=== PATIENT | female | born 1970 | race Caucasian/White ===

== ENCOUNTER 2017-11-02 17:10 | Emergency (ER) | payer BC ==
[2017-11-02] MEDS ORDERED: Ondansetron 8 MG Tab.DIS PO ONE (17:30)
[2017-11-02] MEDS ORDERED: Alum Hydroxide/Mag Hydroxide 15 ML, Lidocaine 2% 15 ML PO ONE ×2 (17:30)
--- NOTE | 2017-11-02 17:34 | EDM.PDOC ---
ED HPI GENERAL MEDICAL PROBLEM - General Stated Complaint: PAIN IN UPPER ABDOMEN Time Seen by Provider: 11/02/17 17:10 Source of Information: Reports: Patient, Family History Limitations: Reports: No Limitations - History of Present Illness INITIAL COMMENTS - FREE TEXT/NARRATIVE: 47 y.o.w.f in prev healthy condition, came to the ed with her SO 2-3 hours after she ate an ice cream and felt epigastric pain. Pt vomited once [employer]. Pt is rating the pain 8/10. BP 123/87 Pulse 87 RR 18 Temp 36.8 O2 sat 98% on RA Onset Date: 11/02/17 Onset Time: 13:00 Duration: Hour(s):, Getting Worse, Intermittent Location: Reports: Abdomen (epigastric) Quality: Reports: Ache, Burning, Dull Severity: Moderate Improves with: Reports: Rest Worsens with: Reports: Movement Context: Reports: Other (eating icecream) Associated Symptoms: Reports: Nausea/Vomiting (X 1) mid upper abdomen Pain Score (Numeric/FACES): 8 - Related Data Allergies Allergy/AdvReac Type Severity Reaction Status Date / Time ibuprofen [From Advil] Allergy Rash Verified 11/02/17 17:59 Sulfa (Sulfonamide Allergy Swelling Verified 11/02/17 17:59 Antibiotics) Home Meds: Home Meds NK [No Known Home Meds] 11/02/17 [History] ED ROS GENERAL - Review of Systems Review Of Systems: See Below Constitutional: Reports: No Symptoms HEENT: Reports: No Symptoms Respiratory: Reports: No Symptoms Cardiovascular: Reports: No Symptoms Endocrine: Reports: No Symptoms GI/Abdominal: Reports: Abdominal Pain (epigastric) : Reports: No Symptoms Musculoskeletal: Reports: No Symptoms Skin: Reports: No Symptoms Neurological: Reports: No Symptoms Psychiatric: Reports: No Symptoms Hematologic/Lymphatic: Reports: No Symptoms Immunologic: Reports: No Symptoms ED EXAM, GI/ABD - Physical Exam Exam: See Below Exam Limited By: No Limitations General Appearance: Alert, WD/WN, Mild Distress Eyes: Bilateral: Normal Appearance Ears: Normal External Exam Nose: Normal Inspection Throat/Mouth: Normal Inspection Head: Atraumatic, Normocephalic Neck: Normal Inspection, Supple, Non-Tender, Full Range of Motion Respiratory/Chest: No Respiratory Distress, Lungs Clear, Normal Breath Sounds, No Accessory Muscle Use, Chest Non-Tender Cardiovascular: Normal Peripheral Pulses, Regular Rate, Rhythm, No Edema, No Gallop, No JVD, No Murmur, No Rub GI/Abdominal Exam: Normal Bowel Sounds, Soft, Non-Tender, No Organomegaly, No Abnormal Bruit, No Mass (Female) Exam: Deferred Rectal (Female) Exam: Deferred Back Exam: Normal Inspection, Full Range of Motion Extremities: Normal Inspection, Normal Range of Motion, Non-Tender, No Pedal Edema, Normal Capillary Refill Neurological: Alert, Oriented, CN II-XII Intact, Normal Cognition, Normal Gait, No Motor/Sensory Deficits Psychiatric: Normal Affect, Normal Mood Skin Exam: Warm, Dry, Intact Lymphatic: No Adenopathy EKG INTERPRETATION EKG Date: 11/02/17 Time: 18:25 Rhythm: NSR Rate (Beats/Min): 72 [place]: Normal P-Wave: Present QRS: Normal ST-T: Normal QT: Normal Comparison: NA - No Prior EKG Course - Vital Signs Text/Narrative:: 47 y.o.w.f in prev healthy condition, came to the ed with her SO 2-3 hours after she ate an ice cream and felt epigastric pain. Pt vomited once [employer]. Pt is rating the pain 8/10. BP 123/87 Pulse 87 RR 18 Temp 36.8 O2 sat 98% on RA Pt is allergic to NSAIDS PE: WNWD W F with epigastric pain, not radiating Labs: Pending Impresion: Epigastric pain Tx: Zofran, GI cocktail, NS, Protonix, NTG Reexam: No improvement, consider pain meds, U/S abd. limited Pt was signed out to Dr. Fermin due to shift changes at 7 pm. Last Recorded V/S: Last Vital Signs Temp 36.3 C 11/02/17 17:10 Pulse 69 11/02/17 20:00 Resp 18 11/02/17 20:00 BP 126/78 11/02/17 20:00 Pulse Ox 100 11/02/17 20:00 - Orders/Labs/Meds Orders: Active Orders 24 hr Category Date Time Status Gallbladder [Abdomen Ltd] [US] Stat Exams 11/02/17 20:04 Taken EKG 12 Lead [EK] Routine Ther 11/02/17 18:19 Ordered Labs: Laboratory Tests 03/24/18 03/24/18 03/24/18 Range/Units 18:45 18:45 18:45 WBC 9.4 (4.5-12.0) X10-3/uL RBC 4.76 (3.23-5.20) x10(6)uL Hgb 13.5 (11.5-15.5) g/dL Hct 40.3 (30.0-51.3) % MCV 84.7 (80-96) fL MCH 28.3 (27.7-33.6) pg MCHC 33.4 (32.2-35.4) g/dL RDW 12.9 (11.5-15.5) % Plt Count 258 (125-369) X10(3)uL MPV 9.4 (7.4-10.4) fL Neut % (Auto) 78.7 (46-82) % Lymph % (Auto) 16.0 (13-37) % Colbert % (Auto) 3.3 L (4-12) % Eos % (Auto) 0 L (1.0-5.0) % Baso % (Auto) 2 (0-2) % Neut # (Auto) 7.4 (1.6-8.3) # Lymph # (Auto) 1.5 (0.6-5.0) # Colbert # (Auto) 0.3 (0.0-1.3) # Eos # (Auto) 0.0 (0.0-0.8) # Baso # (Auto) 0.2 (0.0-0.2) # PT (8.7-11.1) INR (0.89-1.13) Sodium 136 (135-145) mmol/L Potassium 3.7 (3.5-5.3) mmol/L Chloride 100 (100-110) mmol/L Carbon Dioxide 26 (21-32) mmol/L BUN 8 (7-18) mg/dL Creatinine 0.7 (0.55-1.02) mg/dL Est Cr Clr Drug Dosing 103.83 mL/min Estimated GFR (MDRD) > 60 (>60) BUN/Creatinine Ratio 11.4 (9-20) Glucose 129 H (80-116) mg/dL Calcium 9.4 (8.6-10.2) mg/dL Total Bilirubin 0.4 (0.1-1.3) mg/dL Direct Bilirubin 0.08 L (0.10-0.20) mg/dL AST 16 (5-25) IU/L ALT 21 (12-36) U/L Alkaline Phosphatase 85 (56-112) IU/L Troponin I < 0.017 L (<0.017-0.056) ng/mL Total Protein 8.1 H (6.0-8.0) g/dL Albumin 4.2 (3.5-5.2) g/dL Amylase 59 (25-115) U/L 11/02/17 Range/Units 18:45 WBC (4.5-12.0) X10-3/uL RBC (3.23-5.20) x10(6)uL Hgb (11.5-15.5) g/dL Hct (30.0-51.3) % MCV (80-96) fL MCH (27.7-33.6) pg MCHC (32.2-35.4) g/dL RDW (11.5-15.5) % Plt Count (125-369) X10(3)uL MPV (7.4-10.4) fL Neut % (Auto) (46-82) % Lymph % (Auto) (13-37) % Colbert % (Auto) (4-12) % Eos % (Auto) (1.0-5.0) % Baso % (Auto) (0-2) % Neut # (Auto) (1.6-8.3) # Lymph # (Auto) (0.6-5.0) # Colbert # (Auto) (0.0-1.3) # Eos # (Auto) (0.0-0.8) # Baso # (Auto) (0.0-0.2) # PT 9.9 (8.7-11.1) INR 0.98 (0.89-1.13) Sodium (135-145) mmol/L Potassium (3.5-5.3) mmol/L Chloride (100-110) mmol/L Carbon Dioxide (21-32) mmol/L BUN (7-18) mg/dL Creatinine (0.55-1.02) mg/dL Est Cr Clr Drug Dosing mL/min Estimated GFR (MDRD) (>60) BUN/Creatinine Ratio (9-20) Glucose (80-116) mg/dL Calcium (8.6-10.2) mg/dL Total Bilirubin (0.1-1.3) mg/dL Direct Bilirubin (0.10-0.20) mg/dL AST (5-25) IU/L ALT (12-36) U/L Alkaline Phosphatase (56-112) IU/L Troponin I (<0.017-0.056) ng/mL Total Protein (6.0-8.0) g/dL Albumin (3.5-5.2) g/dL Amylase (25-115) U/L Meds: Medications Discontinued Medications Generic Name Dose Route Start Last Admin Trade Name Freq PRN Reason Stop Dose Admin Al Hydroxide/Mg Hydroxide 15 0 ml 11/02/17 17:30 11/02/17 17:50 ml/ Lidocaine HCl 15 ml PO 11/02/17 17:31 15 ml ONETIME ONE Administration Pantoprazole Sodium 40 mg/ 100 mls @ 200 mls/hr 11/02/17 18:28 11/02/17 18:47 Sodium Chloride IV 11/02/17 18:57 200 mls/hr .BOLUS ONE Administration Sodium Chloride 1,000 mls @ 125 mls/hr 11/02/17 19:00 11/02/17 19:28 Normal Saline IV 125 mls/hr ASDIRECTED SIMON Administration Morphine Sulfate 4 mg 11/02/17 20:05 11/02/17 20:10 Morphine IVPUSH 11/02/17 20:06 4 mg ONETIME ONE Administration Nitroglycerin 0.5 gm 11/02/17 18:40 11/02/17 19:27 Nitro-Bid 2% TOP 11/02/17 18:41 0.5 gm ONETIME ONE Administration Ondansetron HCl 8 mg 11/02/17 17:30 11/02/17 17:36 Zofran Odt PO 11/02/17 17:31 8 mg ONETIME ONE Administration Departure - Departure Time of Disposition: 21:00 Disposition: Home, Self-Care 01 Condition: Good Clinical Impression: [place] Qualifiers: Cholecystitis acuity: acute Biliary obstruction: without biliary obstruction - Discharge Information Instructions: Cholelithiasis Referrals: Alo Mercedes MD [Primary Care Provider] - 1 Day Forms: ED Department Discharge Additional Instructions: Take Tramadol 1 tab 3 x day as needed for pain. Take Zofran 1 tablet and dissolve under your tongue 3 x a day for nausea. Follow up with Dr. Mercedes on Saturday. May call or come back here at the ED if symptoms get worse. - My Orders Last 24 Hours: My Active Orders 11/02/17 18:19 EKG 12 Lead [EK] Routine - Assessment/Plan Last 24 Hours: My Active Orders 11/02/17 18:19 EKG 12 Lead [EK] Routine
[2017-11-02] MEDS ORDERED: Pantoprazole 40 MG in Sodium Chloride 0.9% 100 ML IV ONE (18:28)
[2017-11-02] MEDS ORDERED: Nitroglycerin 2% Oint 1 GM UD Packet TOP ONE (18:40)
[2017-11-02] MEDS ORDERED: Sodium Chloride 0.9% 1,000 ML IV SCH (19:00)
[2017-11-02] MEDS ORDERED: Morphine 4 MG/ML Syringe IVPUSH ONE (20:05)
[2017-11-02] MEDS ORDERED: Ondansetron 4 MG Tab.DIS PO ONE (21:03)
[2017-11-02] MEDS ORDERED: traMADol 50 MG Tab PO ONE (21:03)
--- NOTE | 2017-11-02 22:22 | ER ---
DATE SEEN: 11/02/2017 TIME SEEN: 1900 hours. CHIEF COMPLAINT: Epigastric pain. HISTORY OF PRESENT ILLNESS: This is a 47-year-old female with epigastric pain that started at 5 this morning. Moderate pain associated with nausea and one time vomiting. It radiates to the back. It is a constant, bothering pain, poorly described. REVIEW OF SYSTEMS: No fever or chills. No chest pain or shortness of breath. No constipation. PAST MEDICAL HISTORY: She had similar pain about 2 months ago. SURGICAL HISTORY: None except T and A. ALLERGIES: Ibuprofen gives a rash and sulfa also causes swelling. PHYSICAL EXAMINATION: GENERAL: She is not in distress. She is well hydrated. VITAL SIGNS: Blood pressure is normal. Pulse is 87 and temp is 97.4. EARS, NOSE AND THROAT: Negative. HEAD: Normal size. CHEST: Clear. ABDOMEN: Soft, mild tenderness in the epigastrium. No rebound. EXTREMITIES: No edema. LABORATORY DATA: Amylase is normal. CBC and CMP unremarkable. Troponin less than 0.017. EKG was normal. Ultrasound of the gallbladder showed 2 gallstones, distended bladder. FINAL IMPRESSION: 1. Epigastric pain. 2. Gallstones. PLAN: The patient was given normal saline and Zofran. I gave 4 mg of morphine, symptoms improved. I discharged her home on hydrocodone t.i.d. and Zofran to use as needed. I advised her to see physician on Saturday. Return to the ED with any worsening symptoms. /[id number] NICHELLE/NITO
--- NOTE | 2017-11-04 10:52 | US ---
INDICATION: Abdominal pain, right upper quadrant - mid epigastric. RIGHT UPPER QUADRANT/GALLBLADDER ULTRASOUND: Multiple ultrasonic images were obtained 11/02/2017 and revealed the gallbladder to be enlarged, measuring 10.5 x 4.6 x 4 cm with two included calculi which move with change in position of the patient. Due to pain medications given to the patient, Shrestha sign was not felt to be accurate. The common bile duct was normal in caliber at 5.4 mm. No wall thickening of the gallbladder or pericholecystic fluid was seen. The calculi measured 9.4 and 6.8 mm in size in one projection. The liver appears slightly echogenic, raising question of mild fatty infiltration. The right kidney measured 9.7 x 4.4 x 5.8 cm and appeared normal. The IVC and aorta were not evaluated. A portion of the pancreas was visualized - proximal body area. The remainder was not visualized due to intestinal gas. IMPRESSION: 1. Cholelithiasis with relatively dilated appearing gallbladder. Findings should be correlated clinically. Additional examination could be obtained such as hepatobiliary imaging with nuclear medicine. 2. Fatty infiltration of the liver. MTDD
== END 2017-11-02 21:18 | disposition home or self-care (01) ==
LOC: FB.ED 17:10
DX: K80.80 Other cholelithiasis without obstruction (principal)
CPT/HCPCS: 36415; 76705; 80048; 80076; 82150; 84484; 85025; 85610; 93005; 96361; 96365; 96366; 96375; 99284; A9270-GY; C9113; J2270; J7030; J7040